=== PATIENT | female | born 1960 | race Caucasian/White ===

== ENCOUNTER → 2017-04-04 | Outpatient (CLI) | payer OTHER | LOC: FIMAGING 13:51 | PROVIDERS: ATTEND Internal Medicine | DX: Z12.31 Encounter for screening mammogram for malignant neoplasm of breast (principal); Z80.3 Family history of malignant neoplasm of breast | CPT/HCPCS: G0202 ==

== ENCOUNTER → 2018-04-11 | Outpatient (CLI) | payer OTHER | LOC: FIMAGING 14:44 | PROVIDERS: ATTEND Internal Medicine | DX: N83.02 Follicular cyst of left ovary (principal); N88.8 Other specified noninflammatory disorders of cervix uteri; Z90.710 Acquired absence of both cervix and uterus ==

== ENCOUNTER → 2019-04-09 | Outpatient (CLI) | payer OTHER | LOC: FIMAGING 12:57 ==